=== PATIENT | male | born 1990 | race Two or more races ===

== ENCOUNTER 2019-07-19 17:20 | Emergency (ER) | payer MEDICAID ==
[~2019-07-19] VITALS: Ht 165.1 cm; Wt 59.0 kg
--- NOTE | 2019-07-19 17:38 | NUR ---
PT BIB SELF C/O SI "I want to jump in front of train" PT IS AAOX3, NOT IN RESPIRATORY DISTRESS, HOOKED TO MONITOR, KEPT RESTED AND COMFORTABLE, WILL CONTINUE TO MONITOR.
--- NOTE | 2019-07-19 17:46 | NUR ---
SEEN AND EXAMINED BY .
--- NOTE | 2019-07-19 17:49 | NUR ---
URINE SPECIMEN COLLECTED AND SENT TO LAB.
--- NOTE | 2019-07-19 18:00 | NUR ---
ER PHLEB AT BEDSIDE FOR BLOOD DRAW.
[2019-07-19 18:03] LABS: APPEARANCE,URINE Cloudy (CLEAR); BILIRUBIN,URINE Negative (NEGATIVE); BLOOD, URINE Negative Ery/uL (NEGATIVE); COLOR,URINE Yellow (YELLOW); KETONES,URINE Negative (NEGATIVE); LEUKOCYTE ESTERASE ,URINE Negative (NEGATIVE); NITRITE, URINE Negative (NEGATIVE); PH,URINE 7.5 (5.0-8.0); PROTEIN,URINE Negative (NEGATIVE); UGLUCOSE Negative (NEGATIVE)
[2019-07-19 18:11] LABS: RBC,URINE 0-2 /HPF (0-2)
[2019-07-19 18:12] LABS: BACTERIA,URINE None seen /HPF (None Seen); MUCUS,URINE Moderate /LPF (None Seen); SQUAMOUS EPITHELIAL CELL,UR Rare /HPF (None Seen); URINE AMORPHOUS PHOSPHATES Many /HPF (None Seen); WBC,URINE 0-2 /HPF (0-3)
[2019-07-19 18:14] LABS: BASOPHILS # (AUTO) 0.1 /CMM (0.0-0.2); BASOPHILS % (AUTO) 1.1 % (0.0-2.0); EOSINOPHILS % (AUTO) 3.5 % (0.0-6.0); HEMATOCRIT 41 % (39-51); LYMPHOCYTES # (AUTO) 3.5 /CMM (0.8-4.8); LYMPHOCYTES % (AUTO) 35.3 % (20.0-44.0); MEAN CORPUSCULAR HGB CONC 34 g/dl (31.0-36.0); MEAN CORPUSCULAR VOLUME 96 fL (80-96); MONOCYTES # (AUTO) 0.8 /CMM (0.1-1.30); MONOCYTES % (AUTO) 7.8 % (2.0-12.0); NEUTROPHILS # (AUTO) 5.1 /CMM (1.8-8.9); NEUTROPHILS % (AUTO) 52.3 % (43.0-81.0); PLATELET COUNT (AUTO) 261 /CMM (150-450); RED BLOOD CELL COUNT(AUTO) 4.23 MIL/uL (4.5-6.0); WHITE BLOOD COUNT (AUTO) 9.8 K/uL (4.3-11.0)
[2019-07-19 18:32] LABS: CARBON DIOXIDE 30 mmol/L (21-32); CHLORIDE 107 mmol/L (98-107); CREATININE 0.9 mg/dL (0.6-1.3); GLUCOSE 67 mg/dL (74-106); POTASSIUM 3.9 mmol/L (3.5-5.1); SODIUM SERUM 143 mmol/L (136-145); UREA NITROGEN, BLOOD 7 mg/dL (7-18)
[2019-07-19 18:47] LABS: ALANINE AMINOTRANSFERASE 18 U/L (12-78); ALBUMIN 3.9 g/dL (3.4-5.0); ALCOHOL, BLOOD < 3 mg/dL (0-0); ALKALINE PHOSPHATASE 69 U/L (46-116); ASPARTATE AMINOTRANSFERASE 22 U/L (15-37); BILIRUBIN,DIRECT 0.1 mg/dL (0.0-0.2); BILIRUBIN,TOTAL 0.2 mg/dL (0.2-1.0); SALICYLATE 1.7 mg/dL (2.8-20.0)
--- NOTE | 2019-07-19 18:56 | NUR ---
CALLED [employer] [facility] [employer]
--- NOTE | 2019-07-19 19:37 | NUR ---
PER MARIO ALBERTO CALL [facility], FAX PAPERWORK.
--- NOTE | 2019-07-19 20:12 | NUR ---
Polo bojorquez in ED[facility] - 07/19/19 at 2018 by MAOSN PER DC [facility] INTAKE, POSSIBLE MED AVAILABLE [facility]. WILL FAX CLINICAL INFORMATION
--- NOTE | 2019-07-19 20:12 | NUR ---
PER DC [facility] INTAKE, POSSIBLE BED AVAILABLE [facility] [place]. WILL FAX CLINICAL INFORMATION
--- NOTE | 2019-07-19 21:12 | NUR ---
PT ACCEPTED TO [facility] ACCEPTING MD: DR. TORRES/DR. HALE NUMBER FOR REPORT: [phone] (UNIT 2)
--- NOTE | 2019-07-19 21:15 | NUR ---
CALLED [facility]INTANA [id number] TRIP #[id number]
--- NOTE | 2019-07-19 21:22 | NUR ---
GAVE REPORT TO SHELLY JUNG FOR [facility]
--- NOTE | 2019-07-19 23:05 | NUR ---
ABEL CALLED, NEW ETA [id number]
--- NOTE | 2019-07-19 23:33 | NUR ---
PROVIDED PT WITH SANDWICH AND WATER PER REQUEST
--- NOTE | 2019-07-20 00:30 | NUR ---
GAVE REPORT TO ABEL FOR TRANSPORTATION [facility]
[2019-07-20 00:46] VITALS: BP 103/66
== END 2019-07-20 00:48 ==
LOC: ER 17:20
DX: R45.851 Suicidal ideations (principal); F20.9 Schizophrenia, unspecified; F32.9 Major depressive disorder, single episode, unspecified; Z91.14 Patient's other noncompliance with medication regimen; Z59.0 Homelessness
CPT/HCPCS: 36415; 80048; 80076; 80305; 80307; 80329; 81001; 85025; 99285; G0480; 81000-TC